=== PATIENT | male | born 1995 | race Caucasian/White ===

== ENCOUNTER 2019-10-20 14:15 | Emergency (ER) | payer MEDICAID ==
[~2019-10-20] VITALS: Ht 193 cm; Wt 128.0 kg
[~2019-10-20 14:15] MED LIST: MECL-111 PO; NO HOME MEDS
[2019-10-20 14:33] VITALS: BP 147/105
[2019-10-20] MEDS ORDERED: IBUP-1986 PO (15:20)
[2019-10-20] MEDS ORDERED: HYDR-3965 PO (15:20)
== END 2019-10-20 15:40 | disposition home or self-care (01) ==
LOC: ER 14:15
DX: S30.0XXA Contusion of lower back and pelvis, initial encounter (principal); Z79.899 Other long term (current) drug therapy; W18.39XA Other fall on same level, initial encounter; Y93.89 Activity, other specified; Y92.89 Other specified places as the place of occurrence of the external cause; Y99.8 Other external cause status
CPT/HCPCS: 99284

== ENCOUNTER 2020-08-19 10:30 | Emergency (ER) | payer MEDICAID ==
[~2020-08-19] VITALS: Ht 195.6 cm; Wt 125.0 kg
[~2020-08-19 10:30] MED LIST changes: +IBUP-1986 PO; -MECL-111 PO; +MECL-159 PO
[2020-08-19 11:53] VITALS: BP 159/118
[2020-08-19] MEDS ORDERED: NAPR-56 PO (12:12)
[2020-08-19] MEDS ORDERED: PENI250T2 PO (12:12)
== END 2020-08-19 12:26 | disposition home or self-care (01) ==
LOC: ER 10:31
DX: K02.9 Dental caries, unspecified (principal); K08.89 Other specified disorders of teeth and supporting structures; Z79.2 Long term (current) use of antibiotics; Z79.899 Other long term (current) drug therapy
CPT/HCPCS: 99283

== ENCOUNTER 2020-10-18 20:57 | Emergency (ER) | payer MEDICAID ==
[~2020-10-18] VITALS: Ht 195.6 cm; Wt 122.5 kg
[2020-10-18 21:33] LABS: BASOPHILS % (AUTO) 0.4 % (0-1); EOSINOPHILS # (AUTO) 0.1 X10'3 (0-0.9); HEMATOCRIT 40.1 % (42.0-52.0); HEMOGLOBIN 13.3 g/dl (14.0-17.9); LYMPHOCYTES # (AUTO) 1.6 X10'3 (1.1-4.8); LYMPHOCYTES % (AUTO) 14.1 % (21-51); MEAN CORPUSCULAR HEMOGLOBIN 26.2 PG (27.0-31.0); MEAN CORPUSCULAR HGB CONC 33.2 g/dL (33.0-36.5); MEAN PLATELET VOLUME 7.5 FL (7.4-10.4); MONOCYTES # (AUTO) 0.8 X10'3 (0-0.9); MONOCYTES % (AUTO) 7.4 % (2-12); NEUTROPHILS # (AUTO) 8.7 X10'3 (1.8-7.7); NEUTROPHILS % (AUTO) 77.1 % (42-75); PLATELET COUNT 198 X10'3 (140-440); RED BLOOD COUNT 5.07 X10'6 (4.70-6.10); RED CELL DISTRIBUTION WIDTH 13.8 % (11.5-14.5); WHITE BLOOD COUNT 11.3 X10'3 (4.5-11.0)
[2020-10-18 22:20] LABS: ALANINE AMINOTRANSFERASE 26 U/L (12-78); ALBUMIN 4.4 G/DL (3.4-5.0); ALBUMIN/GLOBULIN RATIO 1.3 (1.1-1.5); ALKALINE PHOSPHATASE 100 IU/L (46-116); ANION GAP 12 (8-16); ASPARTATE AMINO TRANSFERASE 19 U/L (10-37); BILIRUBIN,TOTAL 0.4 MG/DL (0.1-1.0); BLOOD UREA NITROGEN 16 MG/DL (7-18); BUN/CREATININE RATIO 13.6 (5.4-32.0); CALCIUM 9.3 MG/DL (8.5-10.1); CHLORIDE 102 MMOL/L (99-107); CREATININE 1.18 MG/DL (0.60-1.10); GLUCOSE 121 MG/DL (70-104); LIPASE 74 U/L (73-393); POTASSIUM 3.6 MMOL/L (3.5-5.1); SODIUM 142 MMOL/L (135-145); TOTAL CARBON DIOXIDE 28.1 MMOL/L (24-32); TOTAL PROTEIN 7.9 G/DL (6.4-8.2); eGFR 75 ML/MIN
[2020-10-18 22:42] LABS: CLARITY,URINE CLEAR (Clear); COLOR,URINE YELLOW (Yellow); GLUCOSE, URINE NEGATIVE (Neg); KETONES,URINE TRACE mg/dl (Neg); LEUKOCYTE ESTERASE ,URINE NEGATIVE (Neg); NITRITES, URINE NEGATIVE (Neg); OCCULT BLOOD,URINE NEGATIVE (Neg); PROTEIN,URINE NEGATIVE (Neg); UROBILINOGEN,URINE 0.2 E.U/dL (0.2-1.0)
[2020-10-18 22:52] LABS: UA COLLECTION TYPE CLN CATCH MIDSTREAM
[2020-10-18] MEDS ORDERED: normal saline 1000ML IV soln IVB ONE (23:00)
[2020-10-18] MEDS ORDERED: ondansetron/PF 4mg/2ml inj IV ONE (23:00)
[2020-10-18] MEDS ORDERED: morphine 4 MG/ML inj SYRINge IV PRN (23:00)
[2020-10-19] MEDS ORDERED: HYDR-4353 PO (00:15)
[2020-10-19] MEDS ORDERED: KETO10TA2 PO (00:15)
[2020-10-19] MEDS ORDERED: ONDA4TAB6 PO (00:15)
[2020-10-19] MEDS ORDERED: TADA20TA PO (00:15)
[2020-10-19 00:16] VITALS: BP 159/110
== END 2020-10-19 00:41 | disposition home or self-care (01) ==
LOC: ER 20:58
DX: N20.1 Calculus of ureter (principal); N20.2 Calculus of kidney with calculus of ureter; Z79.899 Other long term (current) drug therapy
CPT/HCPCS: 36415; 74176; 80053; 81003; 83690; 85025; 96361; 96374; 96375; 99284; J2270; J2405; J7030; 96360

== ENCOUNTER 2024-02-09 20:56 | Emergency (ER) | payer MEDICAID ==
[~2024-02-09] VITALS: Ht 188 cm; Wt 97.7 kg
[~2024-02-09 20:56] MED LIST changes: +KETO10TA2 PO; -MECL-159 PO; +MECL-302 PO; +ONDA4TAB6 PO; +TADA20TA PO
[2024-02-09 21:00] VITALS: BP 169/113; PULSE 109; RESP 18; TEMP 97.1; O2SAT 98
== END 2024-02-09 23:09 | disposition left against medical advice (07) ==
LOC: ER 20:56
DX: H53.8 Other visual disturbances (principal); Z53.21 Procedure and treatment not carried out due to patient leaving prior to being seen by health care provider
CPT/HCPCS: 99281

== ENCOUNTER 2024-02-18 18:45 | Emergency (ER) | payer MEDICAID ==
[~2024-02-18] VITALS: Ht 195.6 cm; Wt 129.0 kg
[2024-02-18] MEDS: ibuprofen 200mg tablet PO ONE (19:42)
[2024-02-18] MEDS: acetaminophen 325mg tablet PO ONE (19:43)
[2024-02-18 20:47] VITALS: TEMP 98.7
[2024-02-18 22:06] VITALS: BP 152/100; PULSE 94; RESP 16; O2SAT 98
== END 2024-02-18 22:09 | disposition home or self-care (01) ==
LOC: ER 18:45
DX: J22 Unspecified acute lower respiratory infection (principal); Z20.822 Contact with and (suspected) exposure to COVID-19; Z79.1 Long term (current) use of non-steroidal anti-inflammatories (NSAID); Z79.899 Other long term (current) drug therapy
CPT/HCPCS: 36415; 71045; 87502; 87503; 87811; 99284

== ENCOUNTER 2024-02-21 13:18 | Emergency (ER) | payer MEDICAID ==
[~2024-02-21] VITALS: Ht 195.6 cm; Wt 127.1 kg
[2024-02-21 13:47] VITALS: BP 154/104; PULSE 106; RESP 18; TEMP 98.6; O2SAT 97
[2024-02-21] MEDS ORDERED: POLOS RIGHTEYE (13:53)
== END 2024-02-21 14:05 | disposition home or self-care (01) ==
LOC: ER 13:18
DX: H10.89 Other conjunctivitis (principal); Z79.1 Long term (current) use of non-steroidal anti-inflammatories (NSAID); Z79.899 Other long term (current) drug therapy
CPT/HCPCS: 99283

== ENCOUNTER 2025-02-19 15:27 | Emergency (ER) | payer MEDICAID ==
[~2025-02-19] VITALS: Ht 195.6 cm; Wt 125.0 kg
[2025-02-19 15:57] VITALS: BP 165/115; PULSE 86; RESP 18; TEMP 97.8; O2SAT 97
[2025-02-19] MEDS ORDERED: HYDR-3965 PO (18:53)
[2025-02-19] MEDS ORDERED: AMOX500C2 PO (18:53)
[2025-02-19] MEDS: TETanus/Pertussis (Acell)/Diphther VAC/PF (Tdap-Adult) 0.5ml syringe IMVAC ONE (19:09)
== END 2025-02-19 19:20 | disposition home or self-care (01) ==
LOC: ER 15:27
DX: S02.40CA Maxillary fracture, right side, initial encounter for closed fracture (principal); S01.111A Laceration without foreign body of right eyelid and periocular area, initial encounter; S50.01XA Contusion of right elbow, initial encounter; S60.211A Contusion of right wrist, initial encounter; S09.90XA Unspecified injury of head, initial encounter; W19.XXXA Unspecified fall, initial encounter; Y93.89 Activity, other specified; Y92.89 Other specified places as the place of occurrence of the external cause; Y99.8 Other external cause status
CPT/HCPCS: 12011; 70450; 70486; 73080; 73110; 90471; 90715; 99285; J7030; A4565; A6449